=== PATIENT | female | born 1950 | race Native Hawaiian/Other Pacific Islander ===

== ENCOUNTER → 2018-02-18 | Outpatient (CLI) | payer MEDICARE, OTHER ==
--- NOTE | 2018-03-03 15:40 | CON ---
[address] [address] CONSULTATION Name: BESSIE LESLIE Room: [facility]#: [id number] Admission: 02/18/18 Attend Phys: Matias Rubin MD Discharge: Date of : 54 Report #: [id number] THIS REPORT FOR: //name// CC: Matias Patel DO DATE OF SERVICE: 02/18/2018 [facility] PRIMARY SITE AND HISTOPATHOLOGY: The patient has findings consistent with a T2NxM0 invasive ductal carcinoma of the right breast. HISTORY OF PRESENT ILLNESS: The patient is a 68-year-old woman who had previously underwent breast-conservation therapy for a left breast cancer and she completed radiation therapy as a part of breast conservation therapy for a left breast cancer on 01/09/2003. She had an unremarkable mammogram on 06/20/2017 and, then, she started feeling a mass around the outer portion of the right areola. In 12/2017, she went to see her medical oncologist, Dr. Barakat. Dr. Barakat went ahead and ordered mammograms and an ultrasound of that area. The unilateral right mammogram on 01/24/2018 revealed a focal asymmetry measuring up to 2.6 cm. She also had an ultrasound of the right breast, which revealed an asymmetry that was up to 2.6 cm in size. So, she underwent a needle core biopsy on 02/04/2018, which revealed invasive ductal carcinoma. It was greater than 90% estrogen receptor positive, 60% progesterone receptor positive and HER2/[place] negative. Her breast cancer in 2002 of the left breast was 94% estrogen receptor positive, 96%, progesterone receptor positive and HER2/[place] negative. She presents to discuss treatment options. She indicated that she is scheduled to see her surgeon, Dr. Patel, on 02/25/2018. PAST MEDICAL HISTORY AND PAST SURGICAL HISTORY: The patient had a hysterectomy in 06/1999 due to vaginal bleeding. She had a blood transfusion in the past. She was on hormone replacement after the hysterectomy, which was then discontinued around the year 1999. She also has hyperlipidemia, hypertension and diabetes. MEDICATIONS: Metformin, Humira, atorvastatin, and lisinopril. ALLERGIES: She has no known drug allergies. FAMILY HISTORY: Maternal aunt had leukemia. SOCIAL HISTORY: The patient is retired. She has 3 sons and 1 daughter. Ethanol: she does not drink alcohol containing beverages. Cigarettes: [place] [address] CONSULTATION Name: BESSIE LESLIE Room: [facility]#: [id number] Admission: 02/18/18 Attend Phys: Matias Rubin MD Discharge: Date of : 54 Report #: [id number] not smoke. REVIEW OF SYSTEMS: GENERAL: She denied having any fever or chills. SKIN: She has a little bit of bruising around the area of the biopsy and lymph node and very mild itching in that area too. LYMPH NODES: She had no enlarged or painful glands in the neck or underarms. ENDOCRINE: She denied having any hot or cold intolerance. HEMATOLOGY AND IMMUNOLOGY: She denied having any anemia or recurrent infections. MUSCULOSKELETAL: She takes Humira. She has arthritis, which causes cramps sometime. HEAD AND NECK: She has tinnitus, which is chronic. She had a rare intermittent sore throat over the last 6 months during the cold weather. RESPIRATORY: She denied having shortness of breath. CARDIOVASCULAR: She denied having palpitations. GASTROINTESTINAL: She had an episode of diarrhea, so she took Pepto-Bismol, which darkened her stools. That lasted about a week and now that has resolved. NEUROLOGIC: When she first stands up on her present antihypertensive medications, she has mild balance issues. PHYSICAL EXAMINATION: With my nurse, Megan Chau, present: VITAL SIGNS: Height 5 feet 6 inches, weight 186.6 pounds, blood pressure 136/75, pulse 83, respirations 18, oxygen saturation 97%. LYMPH NODES: She had no cervical, supraclavicular, or axillary lymphadenopathy. GENERAL: She is alert, oriented, in no acute distress. EYES: Pupils were equal, round, reactive to light and accommodation. Extraocular movements were intact. HEAD, EYES, EARS, NOSE AND THROAT: Mouth had no visible lesions. HEART: Had a regular rate and rhythm without murmur. LUNGS: were clear to auscultation. BREASTS: Right breast has a palpable lesion in the upper outer portion of the areola measuring about 3.5 cm. x 2.5 cm.There were no other suspicious palpable masses involving the right breast. There were no other suspicious palpable masses involving left breast. ABDOMEN: Not tender. Spleen was not palpable. Liver was at the costal margin. EXTREMITIES: No clubbing, cyanosis or edema. NEUROLOGIC: Cranial nerves II to XII were intact. Sensation was intact. The patient had 5/5 strength in extremities. ASSESSMENT AND PLAN: The patient has findings [place] [address] CONSULTATION Name: BESSIE LESLIE Room: [facility]#: [id number] Admission: 02/18/18 Attend Phys: Matias Rubin MD Discharge: Date of : 54 Report #: [id number] T2NxM0 breast cancer of the right breast. She underwent breast conservation therapy for a left breast cancer in 2002. The patient was told that her treatment options include breast conservation therapy versus mastectomy and that is based on the NSABP B-06 results; where patients with early breast cancer with stage I and II breast cancer were randomized between total mastectomy versus lumpectomy alone versus lumpectomy and radiation therapy. At 20 years follow up, there was no difference in survival between the treatment groups. The addition of radiation therapy to lumpectomy reduced the local failure rate from 39% to 14%. So the risks, benefits, and logistics of radiation therapy were explained to the patient in detail. She gave her witnessed informed consent to proceed with breast radiation therapy, if it is indicated in the future. Right now, she is still undecided whether to pursue breast conservation therapy versus mastectomy. She will be discussing it further with her surgeon to help make that decision and I asked her to follow up with me in about 6 weeks. Thank you for this consult. <ELECTRONICALLY SIGNED> By: Matias Rubin MD 03/03/18 1540 [id number] Rubin MD /nt
== END ==
LOC: M.RTH 00:08
DX: Z09 Encounter for follow-up examination after completed treatment for conditions other than malignant neoplasm (principal); Z85.3 Personal history of malignant neoplasm of breast

== ENCOUNTER → 2018-04-03 | Outpatient (CLI) | payer MEDICARE, OTHER ==
--- NOTE | 2018-04-14 00:35 | ONC ---
[address] [address] RADIATION ONCOLOGY NOTE Name: BESSIE LESLIE Room: [facility]#: [id number] Admission: 04/03/18 Attend Phys: Matias Rubin MD Discharge: Date of : 54 Report #: [id number] THIS REPORT FOR: //name// CC: Matias Cazares MD DATE OF SERVICE: 04/03/2018 REFERRING PHYSICIANS: 1. Eric Patel DO 2. Tasha Barakat MD 3. Stephania Jeronimo DO [facility] phone is [phone]. PRIMARY SITE AND HISTOPATHOLOGY: The patient underwent a lumpectomy for a right breast cancer. It ended up being a T1c N1mi M0 breast cancer, which was estrogen receptor positive. INTERVAL NOTE: The patient had Oncotype DX performed by Dr. Barakat and that revealed a score of 15. So I spoke with Dr. Barakat on 04/03/2018 and no chemotherapy is planned. The patient did have lymphovascular invasion. So she was offered radiation therapy as part of breast conservation therapy. I went ahead and ran the [facility] additional lymph node metastasis risk, which was about 17%. MEDICATIONS: Metformin, Humira, Avastin, lisinopril. SOCIAL HISTORY: She has 3 sons, 1 daughter. Cigarettes: she does not smoke. REVIEW OF SYSTEMS: RESPIRATORY: The patient was not short of breath. MUSCULOSKELETAL: She had good range of motion of her upper extremities. PHYSICAL EXAMINATION: With my nurse, Megan Chau, present: VITAL SIGNS: Weight was 180.2 pounds, blood pressure 141/81, respirations 18, pulse 75, and oxygen saturation 97%. HEART: Had a regular rate and rhythm without murmur. LUNGS: were clear to auscultation. LYMPH NODES: She had no palpable cervical, supraclavicular or right axillary lymphadenopathy. She has a seroma in the right axilla that measured 3 cm x 3 cm. The scar over the right breast and the right [place]illa [place] [address] RADIATION ONCOLOGY NOTE Name: BESSIE LESLIE Room: [facility]#: [id number] Admission: 04/03/18 Attend Phys: Matias Rubin MD Discharge: Date of : 54 Report #: [id number] ASSESSMENT AND PLAN: The patient was offered radiation therapy as part of breast conservation therapy. She already had the risks, benefits and logistics of radiation therapy explained to her on 02/18/2018. She gave her witnessed informed consent to proceed at that time. So she appears to be well healed so that I can go ahead and put in the order for her to be scheduled for simulation. Thank you very much for allowing me to participate in the care of this patient. <ELECTRONICALLY SIGNED> By: Matias Rubin MD 04/14/18 0035 [id number] Rubin MD /nt
== END ==
LOC: M.RTH 00:48
DX: Z51.0 Encounter for antineoplastic radiation therapy (principal); Z85.3 Personal history of malignant neoplasm of breast

== ENCOUNTER → 2021-01-07 | Outpatient (CLI) | payer MEDICARE, OTHER ==
[2021-01-07 12:38] LABS: ABSOLUTE EOSINOPHILS 0.1 thou/uL (0.0-0.7); ABSOLUTE LYMPHOCYTES 1.8 thou/uL (0.8-5.3); ABSOLUTE MONOCYTES 0.4 thou/uL (0.0-1.2); ABSOLUTE NEUTROPHILS 3.2 thou/uL (1.6-8.1); BASOPHILS 0.2 %; EOSINOPHILS 1.9 %; HEMATOCRIT 37.5 % (37.0-47.0); HEMOGLOBIN 12.5 gm/dL (12.0-15.0); LYMPHOCYTES 32.6 %; MCH 28.6 pg (26.0-34.0); MCHC 33.3 g/dL (28.0-37.0); MCV 86.1 fL (80.0-100.0); MONOCYTES 6.6 %; MPV 7.1 fl. (7.2-11.1); NUCLEATED RBCS 0 /100WBC; PLATELET COUNT* 249 thou/uL (150-400); POLYS 58.7 %; RBC 4.36 mil/uL (4.20-5.00); RDW-CV 13.1 % (10.5-14.5); WBC 5.4 thou/uL (4.0-11.0)
[2021-01-07 12:47] LABS: ALBUMIN 3.7 g/dL (3.4-5.0); CALCIUM 8.8 mg/dL (8.5-10.1); CREATININE 0.9 mg/dL (0.6-1.3); POTASSIUM 4.5 mmol/L (3.5-5.1); TOTAL BILIRUBIN 0.5 mg/dL (<0.1-1.0)
== END ==
LOC: M.LAB 12:12
DX: L40.50 Arthropathic psoriasis, unspecified (principal)